=== PATIENT | female | born 1955 | race African-American/Black ===

== ENCOUNTER → 2017-07-06 | Outpatient (CLI) | payer MEDICARE, MEDICAID ==
--- NOTE | 2017-07-06 11:28 | Diagnostic Imaging Report ---
Indication: Dyspnea Comparison: 07/14/2009 2 views of the chest obtained. Findings: Cardiomediastinal silhouette and pulmonary vascularity are within normal limits for age. The diaphragmatic contour is smooth and costophrenic angles are sharp. No pleural effusions are identified. The bones are osteopenic. Multilevel thoracic endplate spurs noted. Impression: No acute disease
--- NOTE | 2017-07-07 09:38 | Diagnostic Imaging Report ---
APPROVED REPORT CPT Code: 81062 Present Symptoms Comments: Dyspnea R/O DVT BILATERAL: Imaging reveals a patent deep venous system bilaterally. There is no evidence of thrombus within the femoral, popliteal or tibial segments. Doppler indicates normal spontaneous flow within these segments. SUPERFICIAL VENOUS SYSTEM: Imaging reveals patency of the saphenous veins. However, the greater saphenous veins were dilated. Multiple varicose veins noted in the both legs.
== END | disposition home or self-care (01) ==
LOC: VAS 09:30
DX: R06.00 Dyspnea, unspecified (principal); M85.80 Other specified disorders of bone density and structure, unspecified site
CPT/HCPCS: 71020; 93970